=== PATIENT | female | born 1950 | race Caucasian/White ===

== ENCOUNTER 2021-04-03 09:05 | Inpatient (IN) | payer OTHER ==
[~2021-04-03] VITALS: Ht 149.9 cm; Wt 36.7 kg
[2021-04-03] MEDS ORDERED: NEURONTIN300 MG PO (12:32)
[2021-04-03] MEDS ORDERED: METRONIDAZOLE500 M4 PO (12:32)
[2021-04-03] MEDS ORDERED: LIPITOR 40 MG T40 M1 PO (12:33)
[2021-04-03] MEDS ORDERED: CULTURELLE KID1 EAC1 PO (12:33)
[2021-04-03] MEDS ORDERED: TOPROL XL50 MG PO (12:33)
[2021-04-03] MEDS ORDERED: ROCEPHIN 11 GM/1001 IV (12:34)
[2021-04-03] MEDS ORDERED: DULCOLAX STOOL100 M1 PO (12:35)
[2021-04-03] MEDS ORDERED: HEPARIN SO5000 UNIT6 INJECTION (12:35)
[2021-04-03] MEDS ORDERED: FUROSEMIDE 40 M40 MG PO (12:36)
[2021-04-03] MEDS ORDERED: ASA81BEC PO (12:37)
[2021-04-03] MEDS ORDERED: PERCOCET 10-321 EAC1 PO (12:37)
[2021-04-03] MEDS ORDERED: FLEXERIL PO (12:38)
[2021-04-03] MEDS ORDERED: BRILINTA90 MG PO (12:38)
[2021-04-03] MEDS ORDERED: VANCOCIN 125 M125 M1 PO (12:39)
[2021-04-03] MEDS ORDERED: LEVO-T25 MCG PO (12:39)
[2021-04-03] MEDS ORDERED: VANCOMYCIN HCL250 MG PO (12:40)
[2021-04-03 12:43] VITALS: BP 106/47
[2021-04-03 13:06] LABS: HEMATOCRIT 33.3 % (37.0-47.0); HEMOGLOBIN 10.8 gm/dL (12.0-15.0); MCH 30.1 pg (26.0-34.0); MCHC 32.5 g/dL (28.0-37.0); MCV 92.6 fL (80.0-100.0); RBC 3.59 mil/uL (4.20-5.00); RDW 16.8 % (10.5-14.5); WBC 9.1 thou/uL (4.0-11.0)
[2021-04-03 13:28] LABS: CALCIUM 8.9 mg/dL (8.5-10.1); CREATININE 0.9 mg/dL (0.6-1.0)
[2021-04-03 13:30] LABS: INR 1.11
[2021-04-03 13:35] LABS: POTASSIUM 2.6 mmol/L (3.5-5.1)
[2021-04-03 20:07] VITALS: BP 108/75
[2021-04-03 21:46] LABS: CALCIUM 8.6 mg/dL (8.5-10.1); CREATININE 0.9 mg/dL (0.6-1.0)
[2021-04-03 21:56] LABS: POTASSIUM 3.7 mmol/L (3.5-5.1)
[2021-04-03 23:15] VITALS: BP 110/67
[2021-04-04 03:09] VITALS: BP 124/69
--- NOTE | 2021-04-04 03:45 | NUR ---
RECEIVED PATIENT AT 1900H.ASSESSMENT DONE CHARTED.HAD COMPLAINTS OF PAIN ON LOWER EXTREMETIES,PRN PAIN MEDICATION GIVEN.ISHMAEL GIVEN PER APR.ALL NEEDS ATTENDED.TO CONTINOUSLY MONITOR.
[2021-04-04 07:16] LABS: HEMATOCRIT 31.9 % (37.0-47.0); HEMOGLOBIN 10.4 gm/dL (12.0-15.0); MCH 30.2 pg (26.0-34.0); MCHC 32.6 g/dL (28.0-37.0); MCV 92.6 fL (80.0-100.0); RBC 3.45 mil/uL (4.20-5.00); RDW 16.9 % (10.5-14.5); WBC 10.6 thou/uL (4.0-11.0)
[2021-04-04 07:25] VITALS: BP 93/59
[2021-04-04 07:44] LABS: ALBUMIN 2.8 g/dL (3.4-5.0); CALCIUM 9.1 mg/dL (8.5-10.1); CREATININE 0.9 mg/dL (0.6-1.0); POTASSIUM 3.3 mmol/L (3.5-5.1)
--- NOTE | 2021-04-04 10:53 | NUR ---
TOOK OVER CARE OF THIS PATIENT AT 0700. PT C/O PAIN IN BILATERAL EXTREMITIES; INTERVENTIONAL RADIOLOGY AWARE. WILL CONTINUE TO MONITOR. PRN PAIN MEDICATION ADMIN. DENIES SOA, CHEST PAIN, NAUSEA AND VOMITING. PT REMAINS IN ISOLATION FOR SUSPECTED CDIFF. FALL PRECAUTIONS IN PLACE AND CALL LIGHT WITHIN REACH.
[2021-04-04 11:10] VITALS: BP 79/51
[2021-04-04 15:20] VITALS: BP 98/52
[2021-04-04 19:50] VITALS: BP 114/59
[2021-04-05] VITALS (7 sets, daily range): BP systolic 78–114; BP diastolic 51–61
[2021-04-05 05:23] LABS: HEMATOCRIT 27.1 % (37.0-47.0); HEMOGLOBIN 8.9 gm/dL (12.0-15.0); MCH 30.8 pg (26.0-34.0); MCHC 32.9 g/dL (28.0-37.0); MCV 93.6 fL (80.0-100.0); RBC 2.89 mil/uL (4.20-5.00); RDW 16.6 % (10.5-14.5)
[2021-04-05 05:56] LABS: CALCIUM 8.4 mg/dL (8.5-10.1); CREATININE 0.7 mg/dL (0.6-1.0); MAGNESIUM 1.7 mg/dL (1.8-2.4); POTASSIUM 3.3 mmol/L (3.5-5.1)
--- NOTE | 2021-04-05 06:01 | NUR ---
ASSUME CARE 1900. PT STABLE. BP RUNS LOW, DROPPED TO 70SYSTOLIC AT SOME POINT. BOLUS OF 250 GIVEN/ BP STILL LOW BUT MAP > 60. A/O X 4WITH EPISODES OF CONFUSION AND FORGETFULLNESS NOTED. EASILY REORIENTS. BE PAIN INDICATED WITH MODERQTE RELIEF FROM PAIN MEDS. ST ON [place]. PLAN IS TO CONTINUE TO MONITOR FOR DEHYDRATON, MONITOR ELECTROLYTES AND VITALS AND FOLLOW WITH CARDIOLOGY POC WILL CONTINUE TO MONITOR AND FOLLOW WITH POC
--- NOTE | 2021-04-05 11:02 | HC ---
[facility] [place] [address] CONSULTATION Name: DENISE BOLAÑOS Room #: 212-P ADM IN M.R.#: [id number] Admission: 04/03/21 Attend Phys: Geovanny Maradiaga MD Discharge: Date of : 46 Report #: [id number] THIS REPORT FOR: cc: Lesli Pozo MD, Amar MD [place],Tim Diaz MD ~ DATE OF SERVICE: 04/05/2021 WOUND CARE CONSULTATION NOTE REASON FOR CONSULTATION: Severe peripheral vascular disease of both lower extremities with nonhealing transmetatarsal wound and left foot ischemia with dry gangrene of the foot dorsum, status post vascular intervention Dr. Maradiaga 04/03/2021. HISTORY OF PRESENT ILLNESS: The patient is a 70-year-old woman admitted to [facility] for care of Dr. Power and Dr. Maradiaga. She was admitted with hyponatremia, hypokalemia and severe peripheral artery disease, status post bilateral transmetatarsal amputations recently for the past 60 days. She has had nonhealing of her transmetatarsal amputation sites of both feet and signs of ischemia of the left foot. She did undergo vascular intervention by Dr. Maradiaga on 04/03/2021 with aortogram and bilateral lower extremity runoff angiogram, left peroneal artery atherectomy and stent placement, secondary thrombectomy, left peroneal artery; right external iliac artery stent placement, left common iliac artery stent placement and left external iliac artery stent placement, attempts to revascularize her lower extremities. Wound care was consulted for nonhealing wounds of the lower extremities. PAST MEDICAL HISTORY: Active tobaccoism, severe peripheral vascular disease, status post transmetatarsal amputation of both feet, coronary artery disease, hypertension, hypercholesterolemia, Buerger's disease, admitted with hypokalemia and hyponatremia. Past medical history also includes left eye blindness, cardiomyopathy, ejection fraction 29%. ALLERGIES: CLARITHROMYCIN, CLOPIDOGREL, and TETRACYCLINE. LABORATORY DATA: Laboratories on admission, sodium 128, potassium 2.6. MEDICATIONS: Include gabapentin, atorvastatin, metoprolol, ceftriaxone, heparin, Dulcolax, Lasix, oxycodone, aspirin, Brilinta, cyclobenzaprine, levothyroxine, vancomycin. PAST SURGICAL HISTORY: Tonsillectomy, tubal ligation, bilateral transmetatarsal amputation and Interventional Radiology with stent placement on 04/03/2021. REVIEW OF SYSTEMS: The patient has some foot pain. [address] [address] CONSULTATION Name: DENISE BOLAÑOS Room #: 212-P [facility] IN [facility]#: [id number] Admission: 04/03/21 Attend Phys: Geovanny Maradiaga MD Discharge: Date of : 46 Report #: [id number] PHYSICAL EXAMINATION: GENERAL: Shows a thin, alert woman who is alert, pleasant, conversant. HEENT: Mucous membranes are moist. NECK: Supple. ABDOMEN: Soft. EXTREMITIES: Exam shows bilateral transmetatarsal amputations. On the right foot, there is dry eschar at the two sites at the end amputation stump with nonhealing. There is no redness, no drainage. Examination of the left foot also shows dry eschar nonhealed amputation stump of the left transmetatarsal amputation. There is dry gangrene with ischemic discoloration of the dorsum of the left foot. IMPRESSION: 1. Tobaccoism. 2. Buerger's disease. 3. Coronary artery disease. 4. Admitted with hypokalemia and hyponatremia. 5. Severe peripheral vascular disease of lower extremities with nonhealing transmetatarsal amputation wound and amputation stump of the right and the left foot. 6. Left foot ischemia with discoloration, dry gangrene of the left foot dorsum. WOUND CARE PLAN: We Betadine paint to the nonhealed areas. We will observe left foot, which clinically appears to have the worst ischemia, for evidence that revascularization has improved blood flow. Wound care team will follow. <ELECTRONICALLY SIGNED> By: Tim Salas MD 04/05/21 1102 [id number] [id number] Tim Salas MD /nt
--- NOTE | 2021-04-05 11:03 | EKG ---
[place] [address] [facility] [place] [address] ELECTROCARDIOGRAM REPORT Name: DENISE BOLAÑOS Room #: 212- ADM IN M.R.#: [id number] Admission: 04/03/21 Attend Phys: Geovanny Maradiaga MD Discharge: Date of : 46 Report #: [id number] [facility] Test Date: 2021-04-04 Test Time: 15:36:41 Pat Name: DENISE BOLAÑOS Department: Room: 212 P Gender: F Last Puller: HODAN : 1950 Requested By: Evaristo Bedoya Order Number: [id number] MD: Harrison Mccormick Measurements Intervals [place] Rate: 85 P: 82 CA: 116 QRS: 70 QRSD: 99 T: 265 QT: 414 QTc: 493 Interpretive Statements Sinus rhythm Atrial premature complex Borderline short CA interval Nonspecific repol abnormality, diffuse leads Borderline prolonged QT interval No previous ECG available for comparison Electronically Signed On 04-05-2021 11:02:49 METAL CASTER by Harrison Mccormick [email or web address] <ELECTRONICALLY SIGNED> By: Harrison Mccormick MD, [facility] 04/05/21 1102 D: [id number] Harrison Mccormick MD, FACC /EPI
--- NOTE | 2021-04-05 20:23 | NUR ---
Pt has been A&0x4, confused and forgetful at times. VS stable and afebirle. BP has been sustained SBP > 90. Pt's left foot is red, warm and swollen and infectious disease has been consulted; zosyn and vancomycin have been added to treatment plan. No current concerns. Continue to monitor.
[2021-04-06] VITALS (31 sets, daily range): BP systolic 27–196; BP diastolic 14–162
--- NOTE | 2021-04-06 06:13 | NUR ---
ASSUMED CARE OF PATIENT AT 1900. A&O X 4, FORGETFUL AT TIMES. REORIENTS QUICKLY. ST TO 150 ON MONITOR AT 0230. CALL[address]. HARVEY FOR ONE TIME METOPROLOL DOSE. PT HR IN 110'S AT 0500. C/O LOWER BACK PAIN, RELIEVED WITH OXY. LOOSE BMX3 AND INCONT URINE EPISODES. STOOL SAMPLE COLLECTED. ORLIN FEET PAINTED WITH BETADINE. ZOSYN AND VANC IV. PATIENT RESTING COMFORTABLY IN BED WITH CALL LIGHT WITHIN REACH. WILL CONTINUE TO MONITOR.
--- NOTE | 2021-04-06 08:09 | NUR ---
VOLUNTEER RECRUITMENT COORDINATOR reported pt BP is 64/42 MAP 47 after 2nd attempt. Cardiology aware. IR currently with pt and considering starting IV fluids. Infectious disease currently rounding and made aware of low BP and pt's history. Pt is drowsy but rousable and answers simple questions. Continue to monitor.
--- NOTE | 2021-04-06 09:54 | NUR ---
Blood cultures, CBC and BMP drawn - results pending. Hospitalist ordered pt to be transferred to ICU; supervisor aircraft maintenance aware. Pt code status changed to Full Code as requested by daughter after Hospitalist had conversation with daughter. One time NS bolus given and will continue antibiotic and electrolyte therapy as ordered. Will continue to monitor.
[2021-04-06 10:10] LABS: HEMATOCRIT 26.8 % (37.0-47.0); HEMOGLOBIN 8.5 gm/dL (12.0-15.0); MCHC 31.8 g/dL (28.0-37.0); MCV 94.4 fL (80.0-100.0); RBC 2.84 mil/uL (4.20-5.00); RDW 16.7 % (10.5-14.5); WBC 12.9 thou/uL (4.0-11.0)
[2021-04-06 10:18] LABS: CALCIUM 8.6 mg/dL (8.5-10.1); CREATININE 0.8 mg/dL (0.6-1.0); POTASSIUM 4.7 mmol/L (3.5-5.1)
[2021-04-06 10:36] LABS: % SATURATION 17 % (20-39); IRON 20 ug/dL (50-170); TIBC 121 ug/dL (250-450)
[2021-04-06 10:48] LABS: BE(vivo) -6.9 mmol/L (-2 to +3); HCO3 17.5 mmol/L (22.0-26.0); PCO2 31.1 mmHg (35.0-45.0); pH 7.367 (7.360-7.450); sO2 99.8 % (92.0-98.0)
--- NOTE | 2021-04-06 12:14 | NUR ---
ORDERS RECEIVED FOR PT EVAL AND TREAT. Pt HAD RAPID RESPONSE THIS AM AND THEN TRANSFERRED TO ICU, BP VERY LOW. D/T NEED FOR HIGHER LEVEL OF CARE, WILL NEED NEW ORDERS FOR PT EVALUATION ONCE Pt MEDICALLY STABLE.
--- NOTE | 2021-04-06 12:37 | NUR ---
Pt reported feeling SOB and that her arms and hands were cold. Rapid Response was called; Pt started on Levophed and transferred to ICU.
[2021-04-06 12:54] LABS: APTT 30.2 Seconds (24.5-32.8)
--- NOTE | 2021-04-06 14:33 | NUR ---
PT HAS A PICC UPON ADMIT, [id number] PLACED FOR ICU NEEDS
--- NOTE | 2021-04-06 15:32 | EKG ---
[place] [address] [employer] [place] [address] ELECTROCARDIOGRAM REPORT Name: DENISE BOLAÑOS Room #: 240-P ADM IN M.R.#: [id number] Admission: 04/03/21 Attend Phys: Geovanny Maradiaga MD Discharge: Date of : 46 Report #: [id number] [facility] Test Date: 2021-04-06 Test Time: 10:35:01 Pat Name: DENISE BOLAÑOS Department: Room: 240 P Gender: F Shoe Repairman: HITESH : 1950 Requested By: Evaristo Bedoya Order Number: [id number] MD: Prince Lebron Measurements Intervals [place] Rate: 121 P: 91 TX: 117 QRS: 77 QRSD: 98 T: -89 QT: 303 QTc: 430 Interpretive Statements Sinus tachycardia Borderline low voltage, extremity leads LVH with secondary repol abnrm Compared to ECG 04/04/2021 15:36:41 Sinus mechanism rate faster Electronically Signed On 04-06-2021 15:32:37 MEDICAL TRANSCRIPTIONIST by Prince Lebron [email or web address] <ELECTRONICALLY SIGNED> By: Prince Lebron MD 04/06/21 1532 34 Prince Lebron MD /EPI
[2021-04-06 15:40] LABS: ALBUMIN 2.3 g/dL (3.4-5.0); DIRECT BILIRUBIN 0.1 mg/dL (<0.1-0.2); TOTAL BILIRUBIN 0.3 mg/dL (0.2-1.0); TOTAL PROTEIN 5.6 g/dL (6.4-8.2)
--- NOTE | 2021-04-06 20:35 | NUR ---
PT ARRIVED TO ICU AT 1135 BY CCU STAFF. PT WAS TACHYCARDIC AND SOA UPON ARRIVAL. PT REPORTED SLIGHT PAIN IN HER FEET. LEVOPHED GTT WAS AT 0.16, WHICH WAS TURNED DOWN TO MAX OF 0.1. BP WAS STABLE UPON ARRIVAL AND NO TEMPERATURE WAS NOTED. PT'S SON AND DAUGHTER WERE AT BEDSIDE BY 1300. AROUND 1630, PT EXPERIENCED EPISODES OF HR IN THE 150S, SUDDENLY DROPPING TO HR 30S-50S. BRADYCARDIC EPISODES LASTED A COUPLE OF SECONDS BEFORE PT BECAME TACHY AGAIN. PT WAS ON NC @ 2L UPON ARRIVAL AND WAS EVENTUALLY TITRATED UP TO 5L. PT WAS SLOWLY BECOMING LETHARGIC AND DISORIENTED. AT 1710, FAMILY MADE THE CALL TO TRANSITION PT TO COMFORT CARE MEASURES. THIS RN OBTAINED AN ORDER FOR MORPHINE GTT, WHICH WAS STARTED BY 1720. LEVOPHED GTT WAS TURNED OFF AT PT AT 1800. THIS RN AND DOUGHNUT FRYER ALFREDITO VERIFIED EXPIRATION. PT'S SON ROSEMARIE, DAUGHTER SHAYE, AND GRANDDAUGHTER WERE AT BEDSIDE. SHAYE TOOK PT'S BELONGINGS (WATCH, GLASSES, COAT, AND BLANKET) WITH HER. FAMILY EXPRESSED THAT THEY WOULD CALL ICU TOMORROW (04/07) WITH HOME ARRANGEMENTS. DOCTORS WERE NOTIFIED. MTN WAS NOTIFIED AND STATED THAT PT WOULD NOT BE CONSIDERED FOR REFERRAL. FAMILY LEFT BEDSIDE AROUND 1830.
--- NOTE | 2021-04-06 21:23 | NUR ---
POST MORTEM CARE PROVIDED. [place] [facility] [place]
--- NOTE | 2021-04-07 07:58 | HC ---
[facility] [place] [address] CONSULTATION Name: DENISE BOLAÑOS Room #: [facility] IN M.R.#: [id number] Admission: 04/03/21 Attend Phys: Geovanny Maradiaga MD Discharge: 04/06/21 Date of : 46 Report #: [id number] THIS REPORT FOR: cc: Lesli Pozo MD, Amar MD Barry,Jose Luis Watkins MD ~ DATE OF SERVICE: 04/06/2021 INFECTIOUS DISEASE CONSULTATION ATTENDING PHYSICIAN: Dr. Bedoya. REASON FOR EVALUATION: Suspected cellulitis involving the distal left lower extremity. HISTORY OF PRESENT ILLNESS: Chart reviewed. The patient examined. This is a 70-year-old woman with a history of hypertension, Buerger's disease and severe vasculopathy. She actually had bilateral transmetatarsal amputations, noted lower extremity increasing pain, cold to touch suggestive of [id number] ischemia and now has some cutaneous infarct noted distally, in particular on the left. This has been complicated by inflammatory eruption that suggests secondary bacterial cellulitis. It is difficult to ascertain a decent history. She is quite somnolent. She is noted to be quite hypotensive at this point. She does arouse. She describes significant pain associated with her lower extremities bilaterally. It is not clear if she has had any fevers, have not been any documented since admission. She notes poor p.o. intake. She appears cachectic with weight described as ranging from 68-81 pounds, presumably with hydration. Due to concerns, she was empirically started on combination antimicrobial therapy with Zosyn and vancomycin. Due to her hemodynamic instability, she will be transferred to the intensive care unit. ALLERGIES: Listed to TETRACYCLINE, CLARITHROMYCIN and PLAVIX. CURRENT MEDICATIONS: Include metoprolol, vancomycin, Zosyn, atorvastatin, aspirin, levothyroxine, cyclobenzaprine, gabapentin and fentanyl as needed. PAST MEDICAL HISTORY: As described above, severe vasculopathy, history of Buerger's hypertension and underlying COPD. SOCIAL HISTORY: Former smoker, no ethanol, no illicit drug use. FAMILY HISTORY: Noncontributory. REVIEW OF SYSTEMS: Very limited due to her encephalopathy. PHYSICAL EXAMINATION: [facility] [address] [place] [address] CONSULTATION Name: DENISE BOLAÑOS Room #: [facility] IN [facility].#: [id number] Admission: 04/03/21 Attend Phys: Geovanny Maradiaga MD Discharge: 04/06/21 Date of : 46 Report #: [id number] GENERAL: She is profoundly malnourished, classified as cachectic. She is lethargic to somnolent, moderate distress. VITAL SIGNS: Temperature 97.5, pulse 110, respirations 14, blood pressures 60-70 systolic. SKIN: Warm, dry. HEENT: Normocephalic. NECK: Appears to be supple. LUNGS: Diminished breath sounds. A few scattered crackles. HEART: Tachycardic, regular, do not appreciate a murmur. ABDOMEN: Somewhat scaphoid. No apparent peritoneal signs. EXTREMITIES: Bilateral lower extremities have evidence of transmetatarsal amputation. There is distal cutaneous infarct with gangrene or some moderate degree of erythrodermic-type inflammatory eruption, more so on the left. It is quite tender to touch. There is no evident odor, no purulence noted. No palpable pulses. : Deferred. LABORATORY DATA: Enteral bacterial screening panel was negative. Procalcitonin 0.21. ABGs: pH 7.367, pCO2 of 31.1, pO2 of 408 on 15 liters. Lactic acid 0.5. Electrolytes: Sodium 138, potassium 4.7, chloride 105, bicarbonate is 22, anion gap of 11, BUN and creatinine 11 and 0.8. CBC: White count of 12.9, H and H 8.5 and 26.8, platelets of 237. Troponin was elevated at 304. IMAGING: Chest x-ray showed suspected right lower lobe pneumonia, has some chronic scarring as well, versus acute interstitial pneumonitis or edema. Venous Dopplers showed no evidence of deep venous thrombosis. ASSESSMENT AND PLAN: Inflammatory eruption involving the left lower extremity, likely multifactorial in etiology, certainly has underlying vasculopathy, certainly cannot exclude an infectious component. The tissue is ischemic, but I think it is reasonable to continue empiric broad-spectrum therapy. She is systemically unstable. Whether this is true sepsis is difficult to appreciate. She has been on antibiotics for additional period time, certainly pneumonitis is a consideration as well. Overall, she is at high risk for further complications and likely her prognosis appears quite guarded. We will follow. <ELECTRONICALLY SIGNED> By: Jose Luis Villalobos MD 04/07/21 0758 1029 1314 Jose Luis Villalobos MD /nt
== END 2021-04-06 18:00 | DRG 853 ==
LOC: HYPER 09:05 → TBA 12:23 → 2N 15:50 → ICU 15:50 → 2N 17:50 → ICU 04-06 11:44
PROVIDERS: Hospitalist; Internal Medicine; Nurse Practitioner; ADMIT Nuclear Medicine Nuclear Cardiology; ATTEND Nuclear Medicine Nuclear Cardiology
DX: A41.9 Sepsis, unspecified organism (principal); J18.9 Pneumonia, unspecified organism; E43 Unspecified severe protein-calorie malnutrition; R65.21 Severe sepsis with septic shock; J96.01 Acute respiratory failure with hypoxia; I70.262 Atherosclerosis of native arteries of extremities with gangrene, left leg; E87.1 Hypo-osmolality and hyponatremia; I42.9 Cardiomyopathy, unspecified; L03.116 Cellulitis of left lower limb; Z68.1 Body mass index [BMI] 19.9 or less, adult; E87.6 Hypokalemia; I25.10 Atherosclerotic heart disease of native coronary artery without angina pectoris; I10 Essential (primary) hypertension; E78.00 Pure hypercholesterolemia, unspecified; H54.62 Unqualified visual loss, left eye, normal vision right eye; I73.1 Thromboangiitis obliterans [Buerger's disease]; M19.90 Unspecified osteoarthritis, unspecified site; S91.302A Unspecified open wound, left foot, initial encounter; R62.7 Adult failure to thrive; I95.9 Hypotension, unspecified; Z66 Do not resuscitate; R53.81 Other malaise; D63.8 Anemia in other chronic diseases classified elsewhere; Z89.431 Acquired absence of right foot; Z88.1 Allergy status to other antibiotic agents; Z89.432 Acquired absence of left foot; Z88.8 Allergy status to other drugs, medicaments and biological substances; Z87.891 Personal history of nicotine dependence; Z71.6 Tobacco abuse counseling; X58.XXXA Exposure to other specified factors, initial encounter; Y93.89 Activity, other specified; Y92.89 Other specified places as the place of occurrence of the external cause; Y99.8 Other external cause status
CPT/HCPCS: 10081; 65040